=== PATIENT | male | born 1995 | race American Indian/Alaskan Native ===

== ENCOUNTER 2019-10-02 03:42 | Emergency (ER) | payer OTHER ==
[2019-10-02] MEDS ORDERED: LACTATED RINGERS 1,000 ML IV ONE (04:16)
[2019-10-02] MEDS ORDERED: TETRACAINE 0.5% OPHTH SOLN 4ML OS ONE (04:16)
[2019-10-02] MEDS ORDERED: LACTATED RINGERS 1,000 ML ONE (04:18)
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
[2019-10-02 04:55] LABS: Hematocrit 46.3 % (35.5-45.6); Mean Corpuscular HGB Conc 35 % (32-34); Mean Corpuscular Volume 88 fl (84-94); Platelet Count 217 K/mm3 (140-440); Red Blood Count 5.29 M/mm3 (3.65-5.03); Red Cell Distribution Width 13.3 % (13.2-15.2)
[2019-10-02 05:06] LABS: Alanine Aminotransferase 20 units/L (7-56); Albumin 4.4 g/dL (3.9-5); BUN/Creatinine Ratio 13; Blood Urea Nitrogen 13 mg/dL (9-20); Calcium 9.3 mg/dL (8.4-10.2); Hemolysis Index 11
[2019-10-02 05:13] LABS: Hepatitis B Surface Antigen Non-Reactive (Negative); Hepatitis C Virus Antibody Non-Reactive (NonReactive)
[2019-10-02 05:34] LABS: Basophils % (Manual) 0 % (0.0-1.8); Eosinophils % (Manual) 0 % (0.0-4.3); Total Cells Counted 100
[2019-10-02 05:35] LABS: Hypochromasia 1+; Schistocytes Rare; Target Cells Rare
[2019-10-02 05:36] LABS: Ovalocytes Few; Platelet Estimate Consistent w Auto
[2019-10-02 06:24] VITALS: BP 122/70
== END 2019-10-02 05:40 | disposition home or self-care (01) ==
LOC: ED 03:42
DX: H57.12 Ocular pain, left eye (principal); J45.909 Unspecified asthma, uncomplicated; Z98.890 Other specified postprocedural states; Z77.21 Contact with and (suspected) exposure to potentially hazardous body fluids
CPT/HCPCS: 36415; 80053; 80074; 85007; 85025; 87806; 99283; J7120